=== PATIENT | female | born 1965 | race Caucasian/White ===

== ENCOUNTER 2019-09-26 15:49 | Outpatient (CLI) | payer MEDICARE, SELFPAY ==
--- NOTE | ~2019-09-26 | XR_ITS ---
EXAMINATION: XR chest 2V DATE: 09/26/2019 16:13 INDICATION: Small cell lung cancer. Cough. TECHNIQUE: Frontal and lateral views of the chest were obtained. COMPARISON: Chest CT 08/27/2019, chest single view 04/16/2019 FINDINGS: There is a mass in superior segment left lower lobe. There is discoid atelectasis in right midlung zone. There is right hilar lymphadenopathy. No pleural effusion or pneumothorax. The heart si ze is normal. IMPRESSION: 1. Mass in superior segment left lower lobe, consistent with primary bronchogenic carcinoma. 2. Right hilar lymphadenopathy, consistent with metastatic disease. 3. Discoid atelectasis in right midlung zone. Reviewed, dictated and finalized at location A. [employer]TER HELPER IMPRESSION: 1. Mass in superior segment left lower lobe, consistent with primary bronchogen ic carcinoma. 2. Right hilar lymphadenopathy, consistent with metastatic disease. 3. Discoid atelectasis in right midlung zone.
== END 2019-09-26 15:50 | disposition home or self-care (01) ==
LOC: ANHIMG 15:56
PROVIDERS: PCP Emergency Medicine; Visit Provider Internal Medicine Hematology & Oncology
DX: C34.90 Malignant neoplasm of unspecified part of unspecified bronchus or lung (principal); R59.0 Localized enlarged lymph nodes; J98.11 Atelectasis
CPT/HCPCS: 71046

== ENCOUNTER → 2019-10-08 15:15 | Outpatient (CLI) | payer MEDICARE, SELFPAY ==
--- NOTE | ~2019-10-08 | MM_ITS ---
EXAMINATION: MM screening [facility] BI w juan josé HISTORY: Screening mammogram TECHNIQUE: Craniocaudal and mediolateral oblique 3-D tomosynthesis images were obtained and synthetic 2-D images were generated. CAD analysis was submitted and interpreted. COMPARISON: Comparison to multiple prior studies sequentially, with oldest reviewed study dated 10/2012. BREAST PARENCHYMAL COMPOSITION: There are scattered areas of fibroglandular density. FINDINGS: There is no evidence of suspicious mass, calcification, or architectural distortion to sugg est malignancy in either breast. There has been no suspicious interval change. IMPRESSION: 1. No mammographic evidence of malignancy. 2. Recommend routine screening mammography in one year. BI-RADS Category 1: Negative Reviewed, dictated and finalized at location A. JACKER
== END ==
PROVIDERS: Visit Provider Nurse Practitioner Obstetrics & Gynecology
DX: Z12.31 Encounter for screening mammogram for malignant neoplasm of breast (principal)
CPT/HCPCS: 77063; 77067

== ENCOUNTER 2019-10-23 15:13 | Outpatient (CLI) | payer MEDICARE, SELFPAY ==
--- NOTE | ~2019-10-23 | CT_ITS ---
EXAMINATION: CT chest abdomen pelvis w con EXAM DATE: 10/23/2019 15:58 INDICATION: Non-small cell lung cancer, metastatic disease. Assess treatment response. TECHNIQUE: Spiral CT of the chest, abdomen and pelvis was performed following intravenous injection o f 100 mL Omnipaque 350. Axial, coronal and sagittal images were reviewed. Coronal maximum intensity pixel images of chest reviewed. The dose-length product (DLP) for this examination was 1481.35 mGy- cm. The exposure was tailored according to patient size (auto mA exposure control), and iterative re construction (ASIR) was used as additional dose reduction technique. Comparison is made to prior exam ination from 08/27/2019. FINDINGS: CHEST: Left lower lobe mass has increased in size, now measuring 4.9 x 3.5 cm (previously 2.4 x 1.8) . Previously seen bilateral hilar and mediastinal lymphadenopathy is also increased to a similar degr ee. There is been interval development of subsegmental right upper lobe atelectasis, anterior segment al bronchus likely occluded from the lymphadenopathy. Trace pericardial effusion. No pleural effusion . Tracheobronchial tree is patent. There is no pneumothorax. Heart normal in size. ABDOMEN PELVIS: Interval increase in size of numerous liver metastatic lesions, with one of the large r lesions measuring 6.5 cm versus 4.0 on previous examination. Spleen, adrenal glands, pancreas are u nremarkable. Gallbladder is unremarkable. No biliary obstruction. Portal and splenic veins are pat ent. Kidneys enhance symmetrically. There is no hydronephrosis. The uterus is not identified and has likely been surgically resected. The bladder is unremarkable. Interval development of portacava l lymphadenopathy, lymph node measuring 2.8 x 1.7 cm. There is mild to moderate scattered arterioscl erotic disease. The appendix is not positively visualized. There is no pericecal inflammatory change to suggest appe ndicitis. The stomach and small bowel are unremarkable. There is expected amount of colonic stool. No free intraperitoneal gas. There is 1.5 cm peripherally sclerotic region within the right ilir c crest more apparent than on prior studies, could be a metastatic bone lesion with treatment-related change. IMPRESSION: 1. Interval increase in size of left lower lobe mass, associated mediastinal and hilar lymphadenopat hy. 2. Interval increase in size of numerous liver metastases. 3. Interval development of portacaval and right internal mammary metastatic lymphadenopathy. 4. 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 Reviewed, dictated and finalized at location B. IMPRESSION: 1. Interval increase in size of left lower lobe mass, associated mediastinal a nd hilar lymphadenopathy. 2. Interval increase in size of numerous liver metastases. 3. Interval development of portacaval and right internal mammary metastatic ly mphadenopathy. 4. 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
[2019-10-23 15:51] LABS: Estimated Glomerular Filt Rate > 60
== END 2019-10-23 15:14 | disposition home or self-care (01) ==
LOC: ANHIMG 15:20
PROVIDERS: Visit Provider Internal Medicine Hematology & Oncology
DX: C34.90 Malignant neoplasm of unspecified part of unspecified bronchus or lung (principal); R91.8 Other nonspecific abnormal finding of lung field; C78.7 Secondary malignant neoplasm of liver and intrahepatic bile duct; C77.8 Secondary and unspecified malignant neoplasm of lymph nodes of multiple regions
CPT/HCPCS: 36415; 71260; 74177; Q9967